=== PATIENT | male | born 1965 ===

== ENCOUNTER 2016-07-21 16:15 | Emergency (ER) | payer BC ==
--- NOTE | 2016-07-21 17:09 | PDOC ---
General Adult HPI - General Chief Complaint: Diabetic Complaint Stated Complaint: ELEVATED BLOOD SUGARS, FATIGUE Date Seen by Provider: 07/21/16 Time Seen by Provider: 17:05 Source: POSITIVE: Patient Exam Limitations: POSITIVE: No limitations Nurse's Notes Reviewed & Considered: Yes - History of Present Illness Initial Comment: This is a 50-year-old male who presents to the emergency department with a history of increasing fatigue and lethargy for about the last 24 hours or so. He has noted increasing blood sugars over the past few days, in the mid upper 500s. He also states that he has had nasal and sinus congestion for the past 4- 5 days, but no cough no shortness of breath. No fevers chills or body aches, no lightheadedness or dizziness. Have you received a tetanus shot in the past 10 years?: Unknown - Patient Home Medications Home Medications: Home Medications Lisinopril 10 mg PO DAILY 07/21/16 Metformin HCl 1,000 mg PO BID 07/21/16 Simvastatin 20 mg PO DAILY 07/21/16 - Patient Allergies Allergies/Adverse Reactions: Allergies Allergy/AdvReac Type Severity Reaction Status Date / Time No Known Allergies Allergy Verified 07/21/16 16:36 Past Medical History - heen HEENT History: Denies History Cardiovascular History: Hypertension, Hyperlipidemia Respiratory History: Denies History Gastrointestinal History: Denies History Genitourinary History: Denies History Endocrine History: Type 2 Diabetes (oral) ROS - Limitations ROS Limitations: No Limitations Constitution: DENIES: Chills, Fever Cardiovascular: DENIES: Chest Pain Respiratory: REPORTS: Denies Resp Symptoms Neurological: DENIES: Headache, Dizziness Gastrointestinal: DENIES: Abdominal Pain, Nausea, Vomitting Endocrine: REPORTS: Elevated Glucose Musculoskeletal: DENIES: Muscle Aches Genitourinary: DENIES: Dysuria, Hematuria ENT: REPORTS: Congestion Skin: DENIES: Rash Lympathic: DENIES: Swollen Glands Psychiatric: POSITIVE: Denies Psych Symptoms General Adult Exam - General Appearance General Appearance: POSITIVE: Alert, Cooperative, No Acute Distress - HEENT HEENT: POSITIVE: Head Inspection Nml, PERRL, EOMI. NEGATIVE: Scleral Icterus - Neck Neck: NEGATIVE: Lymphadenopathy - Respiratory Respiratory: POSITIVE: No Respiratory Distress, Breath Sounds Normal. NEGATIVE : Wheezes, Rales, Rhonchi - Cardiovascular Cardiovascular: POSITIVE: Regular Rate & Rhythm, No Murmur, No Gallop - Abdomen Additional Abdominal Details: Abdomen is soft, nontender, nondistended, no organomegaly. - Back Back: POSITIVE: Normal Inspection - Skin Skin: POSITIVE: Warm, Dry, No Rash - Neurological / Psychological Neurological: POSITIVE: Affect Apporpriate, Oriented X3, Motor Normal General Adult Progress - Results Reviewed by me Lab Results Reviewed: Yes Lab Results:: Laboratory Results 07/21/16 07/21/16 Range/Units 17:30 17:33 WBC 8.45 (4.8-10.8) 10^3/uL RBC 5.33 (4.70-6.10) 10^6/uL Hgb 16.0 (14.0-18.0) g/dL Hct 44.4 (42.0-52.0) % MCV 83.3 (80-90) FL MCH 30.0 (27-31) PG MCHC 36.0 (33-37) g/dL RDW Std Deviation 36.7 L (39-50) fL RDW Coeff of Adam 12.1 (11.5-14.5) % Plt Count 285 (140-350) 10*3/uL MPV 9.5 (7.4-12.2) FL Immature Gran % (Auto) 0.4 (0-5) % Neut % (Auto) 46.6 L (50-80) % Lymph % (Auto) 35.6 (10-50) % [place] % (Auto) 9.1 (5-15) % Eos % (Auto) 7.8 (0-8) % Baso % (Auto) 0.5 (0-1) % Immature Gran # (Auto) 0.03 10*3/UL Neut # (Auto) 3.94 10*3/UL Lymph # (Auto) 3.01 10*3/uL [place] # (Auto) 0.77 (0.3-0.8) 10*3/UL Eos # (Auto) 0.66 10*3/UL Baso # (Auto) 0.04 10*3/UL WBC Morphology Comment Normal morphology (NORM) Plt Morphology Comment Normal morphology (NORM) RBC Morph Comment Normal morphology (NORM) VBG pH 7.44 H (7.32-7.42) VBG pCO2 40 L (45-55) mmHg VBG HCO3 27 H (22-26) mmol/L VBG Base Excess 3 H (-2-2) MMOL/L Sodium 136 (135-145) meq/L Potassium 4.0 (3.8-5.2) meq/L Chloride 97 L (98-112) meq/L Carbon Dioxide 26 (23-33) meq/L Anion Gap 13 (5-20) BUN 12 (7-22) mg/dL Creatinine 0.9 (0.70-1.50) mg/dL Estimated GFR > 60 (>60 ml/min/1.73m(2)) BUN/Creatinine Ratio 13.33 (6-20) Glucose 300 H (78-110) mg/dL Calculated Osmolality 292.0 (267-292) mOsm/kg Lactic Acid 1.0 (0.70-2.10) MMOL/L Calcium 9.5 (8.7-10.7) mg/dL Total Bilirubin 0.8 (0.3-1.2) mg/dL AST 21 (21-57) IU/L ALT 46 (21-72) IU/L Alkaline Phosphatase 96 (38-126) IU/L Total Protein 7.7 (6.1-8.0) g/dL Albumin 4.3 (3.5-4.8) g/dL Globulin 3.4 (2.50-4.10) g/dL Albumin/Globulin Ratio 1.20 L (1.3-2.0) mg/g Ur Collection Type Voided specimen Urine Color Yellow Urine Clarity Clear (CLEAR) Urine pH 6.0 (5.0-8.5) Ur Specific [place] 1.020 (1.005-1.030) Urine Protein Negative (NEG) mg/dl Urine Glucose (UA) 500 (NEG) mg/dL Urine Ketones Negative (NEG) Urine Occult Blood Negative (NEG) Urine Nitrate Negative (NEG) Urine Bilirubin Negative (NEG) Urine Urobilinogen 1.0 (0.2) EU/dL Ur Leukocyte Esterase Negative (NEG) Ur Culture Indicated? Culture not set - Patient's Progress Re-Examine Time: 18:43 (stable no change) Status: POSITIVE: Unchanged MDM / ED Course: Emergency room course: After initial evaluation, an IV was started, he was given IV normal saline, and labs were drawn. He was stable throughout the course of his admission in the emergency department. Once labs were reviewed, they're discussed the patient's family. Labs are essentially unremarkable except for blood sugar of 300. I discussed with the patient that his fatigue is most likely due to his hyperglycemia with blood sugar was well over 500 at home. I suggested he call his primary care provider tomorrow to get an appointment to discuss adding more medication to get his blood sugar under better control. He is in agreement with this plan. Patient Care Time - Estimated PCT Patient Care Time (In Minutes): 20 Discharge Clinical Impression: Hyperglycemia due to type 2 diabetes mellitus Discharge Disposition: Discharged to Home Condition: Stable Patient Instructions Given at Discharge: Diabetic Hyperglycemia (ED) Follow Up With: Dona Valdes [Primary Care Provider] -
[2016-07-21] MEDS ORDERED: Sodium Chloride 0.9% 1,000 ML PRIMARY IV ONE (17:13)
[2016-07-21] MEDS ORDERED: NORMAL SALINE 10 ML SYRINGE FLUSH IVP PRN (17:13)
[2016-07-21 17:34] LABS: BASOPHILS # (AUTO) 0.04 10*3/UL; BASOPHILS % (AUTO) 0.5 % (0-1); EOSINOPHILS % (AUTO) 7.8 % (0-8); HEMATOCRIT 44.4 % (42.0-52.0); IMM GRAN % (AUTO) 0.4 % (0-5); IMM GRAN# (AUTO) 0.03 10*3/UL; LYMPHOCYTES # (AUTO) 3.01 10*3/uL; LYMPHOCYTES % (AUTO) 35.6 % (10-50); MEAN PLATELET VOLUME 9.5 FL (7.4-12.2); MONOCYTES # (AUTO) 0.77 10*3/UL (0.3-0.8); MONOCYTES % (AUTO) 9.1 % (5-15); NEUTROPHILS # (AUTO) 3.94 10*3/UL; NEUTROPHILS % (AUTO) 46.6 % (50-80); RDW COEFFICIENT OF VARIATION 12.1 % (11.5-14.5); RED BLOOD COUNT 5.33 10^6/uL (4.70-6.10); WHITE BLOOD COUNT 8.45 10^3/uL (4.8-10.8)
[2016-07-21 17:35] LABS: BILIRUBIN,URINE NEGATIVE (NEG); CLARITY,URINE CLEAR (CLEAR); GLUCOSE, URINE (UA) 500 mg/dL (NEG); LEUKOCYTE ESTERASE ,URINE NEGATIVE (NEG); NITRATE,URINE NEGATIVE (NEG); OCCULT BLOOD,URINE NEGATIVE (NEG); PLATELET MORPHOLOGY COMMENT NORMAL MORPHOLOGY (NORM); PROTEIN,URINE NEGATIVE (NEG); URINE SAMPLE TYPE VOIDED SPECIMEN
[2016-07-21 18:01] LABS: ASPARTATE AMINO TRANSFERASE 21 IU/L (21-57); BILIRUBIN,TOTAL 0.8 mg/dL (0.3-1.2); BLOOD UREA NITROGEN 12 mg/dL (7-22); BUN/CREATININE RATIO 13.33 (6-20); CALCIUM 9.5 mg/dL (8.7-10.7); CHLORIDE 97 meq/L (98-112); CREATININE 0.9 mg/dL (0.70-1.50); EST GLOMERULAR FILTRATION > 60 (>60 ml/min/1.73m(2)); GLUCOSE 300 mg/dL (78-110); SODIUM 136 meq/L (135-145); TOTAL PROTEIN 7.7 g/dL (6.1-8.0)
[2016-07-21 18:17] VITALS: RESP 15; TEMP 97.3
== END 2016-07-21 19:00 | disposition home or self-care (01) ==
LOC: ER 16:15
DX: E11.65 Type 2 diabetes mellitus with hyperglycemia (principal); R53.83 Other fatigue; R09.81 Nasal congestion
CPT/HCPCS: 36415; 80053; 81003; 82803; 83605; 85025; 99282; J7030